=== PATIENT | male | born 1940 | race Caucasian/White ===

== ENCOUNTER 2024-01-03 18:29 | Inpatient (IN) | payer OTHER ==
[~2024-01-03] VITALS: Ht 175.3 cm; Wt 97.2 kg
[2024-01-03 19:03] VITALS: BP 189/73
[2024-01-03 19:58] LABS: BASO % 0.4 % (0.0-1.0); EOS # 0.3 10*3/uL (0.0-0.4); EOS % 4.4 % (1.0-4.0); HEMATOCRIT 28.3 % (42.0-52.0); LYMPH # 0.5 10*3/uL (1.3-4.4); LYMPH % 5.9 % (27.0-41.0); MEAN CORPUSCULAR HGB 30.5 pg (27.0-31.0); MEAN CORPUSCULAR HGB CONC 33.6 g/dl (33.0-37.0); MEAN PLATELET VOLUME 8.4 fl (9.6-12.3); MONO # 0.6 10*3/uL (0.1-1.0); MONO % 7.6 % (3.0-9.0); NEUT # 6.2 10*3/uL (2.3-7.9); NEUT % 81.4 % (47.0-73.0); PLATELET COUNT AUTOMATED 164 10*3/uL (130-400); RED BLOOD COUNT 3.11 10*6/uL (4.50-5.90); RED CELL DISTRI WIDTH 13.8 % (0-14.5); WHITE BLOOD COUNT 7.7 10*3/uL (4.8-10.8)
[2024-01-03 20:09] LABS: BILIRUBIN Negative (Negative); BLOOD 3+ (Negative); CLARITY Clear (Clear); COLOR Orange (Yellow); GLUCOSE Negative (Negative); KETONE Negative (Negative); LEUKO ESTERASE Negative (Negative); NITRITE Negative (Negative); PH 6.5 (4.5-8.0); SPECIFIC GRAVITY 1.015 (1.001-1.030); UROBILINOGEN 0.2 E.U./dl (0.0-1.0)
[2024-01-03 20:15] LABS: POTASSIUM 3.9 mmol/L (3.4-5.1); TOTAL PROTEIN 6.9 gm/dL (6.0-8.0)
[2024-01-03 20:23] LABS: BACTERIA TRACE; RBC TNTC rbc/hpf (0-2)
[2024-01-03] MEDS ORDERED: SODIUM CHLORIDE 0.9% 1,000 ML IV ONE (21:10)
[2024-01-03] MEDS ORDERED: HYDRALAZINE HC100 MG PO (22:38)
[2024-01-03] MEDS ORDERED: HYDROCHLOROTHIA25 M1 PO (22:39)
[2024-01-03] MEDS ORDERED: PROPRANOLOL HCL10 MG PO (22:39)
[2024-01-03] MEDS ORDERED: FENOFIBRATE48 M1 PO (22:40)
[2024-01-03] MEDS ORDERED: ALLOPURINOL100 MG PO (22:40)
[2024-01-03] MEDS ORDERED: LOSARTAN POTASS50 M1 PO (22:42)
[2024-01-03] MEDS ORDERED: LATANOPROST2.5 ML OU (22:43)
[2024-01-04] VITALS (14 sets, daily range): BP systolic 129–1179; BP diastolic 67–85
[2024-01-04] MEDS ORDERED: MAGNESIUM SULFATE 100 ML IV ONE (00:40)
[2024-01-04] MEDS ORDERED: Magnesium Hydroxide 30 ML UDC PO PRN (01:45)
[2024-01-04] MEDS ORDERED: BISACODYL 5 MG TAB PO PRN (01:45)
[2024-01-04] MEDS ORDERED: ACETAMINOPHEN 325 MG TAB PO PRN (01:45)
[2024-01-04] MEDS ORDERED: ACETAMINOPHEN 650 MG SUPP R PRN (01:45)
[2024-01-04] MEDS ORDERED: MORPHINE Sulfate 2 MG/ML SYR IV PRN (01:45)
[2024-01-04] MEDS ORDERED: SODIUM CHLORIDE 0.9% 1,000 ML IV ONE ×2 (02:00→16:05)
[2024-01-04] MEDS ORDERED: Acetaminophen/Hydrocodone 5 MG/325 MG TABLET PO PRN (02:05)
[2024-01-04] MEDS ORDERED: Labetalol Hydrochloride 20 MG/4 ML SYR IV ONE ×2 (02:10→18:00)
[2024-01-04 05:29] LABS: FREE T4 1.04 ng/dl (0.89-1.76); POTASSIUM 3.9 mmol/L (3.4-5.1)
[2024-01-04 06:08] LABS: BASO % 0.5 % (0.0-1.0); EOS # 0.3 10*3/uL (0.0-0.4); EOS % 4.7 % (1.0-4.0); HEMATOCRIT 27.5 % (42.0-52.0); LYMPH # 0.5 10*3/uL (1.3-4.4); LYMPH % 8.3 % (27.0-41.0); MEAN CELL VOLUME 91.4 fl (80.0-94.0); MEAN CORPUSCULAR HGB 30.9 pg (27.0-31.0); MEAN CORPUSCULAR HGB CONC 33.8 g/dl (33.0-37.0); MEAN PLATELET VOLUME 9.1 fl (9.6-12.3); MONO # 0.5 10*3/uL (0.1-1.0); MONO % 9.2 % (3.0-9.0); NEUT # 4.5 10*3/uL (2.3-7.9); PLATELET COUNT AUTOMATED 163 10*3/uL (130-400); RED BLOOD COUNT 3.01 10*6/uL (4.50-5.90); RED CELL DISTRI WIDTH 13.8 % (0-14.5); WHITE BLOOD COUNT 5.8 10*3/uL (4.8-10.8)
[2024-01-04 06:27] LABS: ACT PARTIAL THROMBO TIME 36.6 SECONDS (20.0-32.1)
[2024-01-04] MEDS ORDERED: AZITHROMYCIN 250 ML IV SCH ×2 (06:45→08:00)
[2024-01-04] MEDS ORDERED: Ceftriaxone Sodium 10 ML IV SCH (08:00)
[2024-01-04] MEDS ORDERED: HEPARIN SODIUM 5,000 UNIT/ML VIAL SC SCH (10:00)
[2024-01-04] MEDS ORDERED: GUAIFENESIN 600 MG TAB ER PO SCH (10:00)
[2024-01-04] MEDS ORDERED: hydrALAZINE hydrochloride 20 MG/ML VIAL IV ONE (13:45)
[2024-01-04 14:27] LABS: BILIRUBIN Negative (Negative); BLOOD 3+ (Negative); CLARITY Clear (Clear); COLOR Red (Yellow); GLUCOSE Trace (Negative); KETONE Negative (Negative); LEUKO ESTERASE Negative (Negative); NITRITE Negative (Negative); UROBILINOGEN 0.2 E.U./dl (0.0-1.0)
[2024-01-04 14:40] LABS: BACTERIA TRACE; RBC TNTC rbc/hpf (0-2)
[2024-01-04 15:08] LABS: URINE CREATININE RANDOM 38.4 mg/dL
[2024-01-04] MEDS ORDERED: Ondansetron Hydrochloride 4 MG TAB PO PRN (16:40)
[2024-01-04] MEDS ORDERED: hydrALAZINE hydrochloride 50 MG TAB PO SCH (22:00)
[2024-01-04] MEDS ORDERED: Propranolol Hydrochloride 10 MG TAB PO SCH (22:00)
[2024-01-05] MEDS ORDERED: SODIUM CHLORIDE 0.9% 1,000 ML IV ONE (03:34)
[2024-01-05 04:50] VITALS: BP 207/98
[2024-01-05] MEDS ORDERED: Labetalol Hydrochloride 20 MG/4 ML SYR IV ONE ×2 (05:00→05:12)
[2024-01-05 05:23] LABS: POTASSIUM 4.3 mmol/L (3.4-5.1); TOTAL PROTEIN 6.7 gm/dL (6.0-8.0)
[2024-01-05 05:57] VITALS: BP 168/68
[2024-01-05 06:28] LABS: BASO % 0.4 % (0.0-1.0); EOS # 0.2 10*3/uL (0.0-0.4); EOS % 3.9 % (1.0-4.0); HEMATOCRIT 27.9 % (42.0-52.0); LYMPH # 0.4 10*3/uL (1.3-4.4); LYMPH % 7.4 % (27.0-41.0); MEAN CELL VOLUME 94.3 fl (80.0-94.0); MEAN CORPUSCULAR HGB 31.1 pg (27.0-31.0); MONO # 0.5 10*3/uL (0.1-1.0); MONO % 8.9 % (3.0-9.0); NEUT # 4.5 10*3/uL (2.3-7.9); NEUT % 78.7 % (47.0-73.0); PLATELET COUNT AUTOMATED 173 10*3/uL (130-400); RED BLOOD COUNT 2.96 10*6/uL (4.50-5.90); RED CELL DISTRI WIDTH 13.9 % (0-14.5); WHITE BLOOD COUNT 5.7 10*3/uL (4.8-10.8)
[2024-01-05 06:57] VITALS: BP 156/71
[2024-01-05] MEDS ORDERED: LORAZEPAM0.5 M1 PO (09:44)
[2024-01-05] MEDS ORDERED: CALCIUM (OSCAL) 500MG PO SCH (10:00)
[2024-01-05] MEDS ORDERED: ALLOPURINOL 100 MG TAB PO SCH (10:00)
[2024-01-05] MEDS ORDERED: LORazepam 0.5 MG TAB PO SCH ×2 (10:13→22:00)
[2024-01-05 12:17] VITALS: BP 185/91
[2024-01-05] MEDS ORDERED: CARVEDILOL 12.5 MG TAB PO SCH (14:15)
[2024-01-05] MEDS ORDERED: amLODIPine besylate 5 MG TAB PO SCH (14:15)
[2024-01-05 19:37] VITALS: BP 170/95
[2024-01-05 21:55] VITALS: BP 188/77
[2024-01-05] MEDS ORDERED: LATANOPROST 0.005% 2.5 ML BOTTLE OPH SCH (22:00)
[2024-01-06] VITALS: BP 152/82
[2024-01-06] MEDS ORDERED: Albuterol Sulf/Ipratropium 3 ML VIAL NEB PRN (05:40)
[2024-01-06 06:17] LABS: BASO % 0.7 % (0.0-1.0); EOS # 0.2 10*3/uL (0.0-0.4); EOS % 3.2 % (1.0-4.0); HEMATOCRIT 25.8 % (42.0-52.0); LYMPH # 0.6 10*3/uL (1.3-4.4); LYMPH % 10.1 % (27.0-41.0); MEAN CELL VOLUME 93.1 fl (80.0-94.0); MEAN CORPUSCULAR HGB CONC 33.3 g/dl (33.0-37.0); MONO # 0.5 10*3/uL (0.1-1.0); MONO % 9.2 % (3.0-9.0); NEUT # 4.5 10*3/uL (2.3-7.9); NEUT % 76.1 % (47.0-73.0); PLATELET COUNT AUTOMATED 161 10*3/uL (130-400); RED BLOOD COUNT 2.77 10*6/uL (4.50-5.90); RED CELL DISTRI WIDTH 13.6 % (0-14.5); WHITE BLOOD COUNT 5.9 10*3/uL (4.8-10.8)
[2024-01-06 07:06] LABS: POTASSIUM 4.7 mmol/L (3.4-5.1)
[2024-01-06 08:00] VITALS: BP 153/94
[2024-01-06] MEDS ORDERED: hydrOXYzine pamoate 25 MG CAP PO PRN ×2 (08:55)
[2024-01-06 12:00] VITALS: BP 135/60
[2024-01-06 16:00] VITALS: BP 131/61
[2024-01-06 20:00] VITALS: BP 147/82; BP 174/82
[2024-01-06 21:58] VITALS: BP 146/77
[2024-01-07] VITALS: BP 141/54
[2024-01-07 06:17] LABS: BASO % 0.5 % (0.0-1.0); EOS # 0.3 10*3/uL (0.0-0.4); EOS % 5.4 % (1.0-4.0); LYMPH # 0.7 10*3/uL (1.3-4.4); MEAN CELL VOLUME 90.6 fl (80.0-94.0); MEAN CORPUSCULAR HGB 31.2 pg (27.0-31.0); MEAN CORPUSCULAR HGB CONC 34.4 g/dl (33.0-37.0); MEAN PLATELET VOLUME 8.8 fl (9.6-12.3); MONO # 0.6 10*3/uL (0.1-1.0); MONO % 10.3 % (3.0-9.0); NEUT # 4.3 10*3/uL (2.3-7.9); NEUT % 71.8 % (47.0-73.0); PLATELET COUNT AUTOMATED 144 10*3/uL (130-400); RED BLOOD COUNT 2.76 10*6/uL (4.50-5.90); RED CELL DISTRI WIDTH 13.7 % (0-14.5); WHITE BLOOD COUNT 5.9 10*3/uL (4.8-10.8)
[2024-01-07 06:27] LABS: POTASSIUM 4.4 mmol/L (3.4-5.1)
[2024-01-07 08:00] VITALS: BP 169/81
[2024-01-07 12:00] VITALS: BP 105/74
[2024-01-07 16:00] VITALS: BP 139/66
[2024-01-07 20:00] VITALS: BP 132/73
[2024-01-08] VITALS: BP 118/50
[2024-01-08 05:07] LABS: HBSAG Negative (Negative); HEP B CORE AB, IGM Negative (Negative); HEPATITIS C ANTIBODY Non Reactive (Non Reactive)
[2024-01-08 06:12] LABS: POTASSIUM 4.1 mmol/L (3.4-5.1)
[2024-01-08 06:14] LABS: BASO % 0.3 % (0.0-1.0); EOS # 0.3 10*3/uL (0.0-0.4); EOS % 5.4 % (1.0-4.0); HEMATOCRIT 23.8 % (42.0-52.0); LYMPH # 0.7 10*3/uL (1.3-4.4); LYMPH % 11.8 % (27.0-41.0); MEAN CELL VOLUME 92.2 fl (80.0-94.0); MEAN CORPUSCULAR HGB CONC 33.6 g/dl (33.0-37.0); MONO # 0.8 10*3/uL (0.1-1.0); MONO % 12.8 % (3.0-9.0); NEUT # 4.1 10*3/uL (2.3-7.9); PLATELET COUNT AUTOMATED 143 10*3/uL (130-400); RED BLOOD COUNT 2.58 10*6/uL (4.50-5.90); RED CELL DISTRI WIDTH 13.5 % (0-14.5); WHITE BLOOD COUNT 5.9 10*3/uL (4.8-10.8)
[2024-01-08 08:00] VITALS: BP 160/73
[2024-01-08 11:43] LABS: ACT PARTIAL THROMBO TIME 34.1 SECONDS (20.0-32.1)
[2024-01-08 12:19] VITALS: BP 106/52
[2024-01-08] MEDS ORDERED: Lidocaine Hydrochloride 5 ML AMP ONE (13:56)
[2024-01-08] MEDS ORDERED: SODIUM BICARBONATE 4.2% 5 ML VIAL ONE (13:56)
[2024-01-08 14:09] LABS: ALBUMIN 2.8 g/dL (2.9-4.4); ALPHA-1-GLOBULIN 0.4 g/dL (0.0-0.4); ALPHA-2-GLOBULIN 0.9 g/dL (0.4-1.0); BETA GLOBULIN 0.7 g/dL (0.7-1.3); FREE KAPPA LIGHT CHAINS 102.6 mg/L (3.3-19.4); FREE LAMBDA LIGHT CHAINS 64.7 mg/L (5.7-26.3); GAMMA GLOBULIN 0.9 g/dL (0.4-1.8); GLOBULIN, TOTAL 2.9 g/dL (2.2-3.9); KAPPA/LAMBDA RATIO 1.59 (0.26-1.65); TOTAL PROTEIN, SERUM 5.7 g/dL (6.0-8.5)
[2024-01-08 14:09] LABS: ALBUMIN, URINE RANDOM 55.1 % (.); ALPHA-1-GLOBULIN, URINE 7.1 % (.); ALPHA-2-GLOBULIN, URINE 8.1 % (.); GAMMA GLOBULIN, URINE 11.8 % (.); M-SPIKE % Comment: % (Not Observed); PROTEIN,TOTAL - URINE RANDOM 336.6 mg/dL (Not Estab.)
[2024-01-08 16:00] VITALS: BP 127/68
[2024-01-08 20:00] VITALS: BP 148/65
[2024-01-09] VITALS: BP 119/51
[2024-01-09 08:00] VITALS: BP 151/61
[2024-01-09 08:02] LABS: BASO % 0.5 % (0.0-1.0); EOS # 0.3 10*3/uL (0.0-0.4); EOS % 4.5 % (1.0-4.0); HEMATOCRIT 24.9 % (42.0-52.0); LYMPH # 0.6 10*3/uL (1.3-4.4); MEAN CELL VOLUME 92.9 fl (80.0-94.0); MEAN CORPUSCULAR HGB 31.3 pg (27.0-31.0); MEAN CORPUSCULAR HGB CONC 33.7 g/dl (33.0-37.0); MEAN PLATELET VOLUME 8.5 fl (9.6-12.3); MONO # 0.7 10*3/uL (0.1-1.0); MONO % 10.7 % (3.0-9.0); NEUT # 4.7 10*3/uL (2.3-7.9); NEUT % 73.7 % (47.0-73.0); PLATELET COUNT AUTOMATED 164 10*3/uL (130-400); RED BLOOD COUNT 2.68 10*6/uL (4.50-5.90); RED CELL DISTRI WIDTH 13.8 % (0-14.5); WHITE BLOOD COUNT 6.4 10*3/uL (4.8-10.8)
[2024-01-09 08:26] LABS: POTASSIUM 4.6 mmol/L (3.4-5.1)
[2024-01-09 12:00] VITALS: BP 110/55
[2024-01-09 16:00] VITALS: BP 134/61
[2024-01-09 20:00] VITALS: BP 151/69
[2024-01-10] VITALS: BP 101/50
[2024-01-10 06:25] LABS: BASO % 0.5 % (0.0-1.0); EOS # 0.3 10*3/uL (0.0-0.4); EOS % 4.9 % (1.0-4.0); HEMATOCRIT 22.6 % (42.0-52.0); LYMPH # 0.5 10*3/uL (1.3-4.4); LYMPH % 9.3 % (27.0-41.0); MEAN CELL VOLUME 91.5 fl (80.0-94.0); MEAN CORPUSCULAR HGB 31.6 pg (27.0-31.0); MEAN CORPUSCULAR HGB CONC 34.5 g/dl (33.0-37.0); MEAN PLATELET VOLUME 9.1 fl (9.6-12.3); MONO # 0.6 10*3/uL (0.1-1.0); MONO % 10.4 % (3.0-9.0); NEUT # 4.2 10*3/uL (2.3-7.9); PLATELET COUNT AUTOMATED 149 10*3/uL (130-400); RED BLOOD COUNT 2.47 10*6/uL (4.50-5.90); RED CELL DISTRI WIDTH 13.8 % (0-14.5); WHITE BLOOD COUNT 5.7 10*3/uL (4.8-10.8)
[2024-01-10 06:56] LABS: POTASSIUM 4.4 mmol/L (3.4-5.1)
[2024-01-10 08:00] VITALS: BP 140/64
[2024-01-10 12:00] VITALS: BP 127/57
[2024-01-10 16:00] VITALS: BP 128/62
[2024-01-10 20:00] VITALS: BP 141/68
[2024-01-11] VITALS: BP 103/50
[2024-01-11 06:30] LABS: BASO % 0.7 % (0.0-1.0); EOS # 0.3 10*3/uL (0.0-0.4); HEMATOCRIT 23.1 % (42.0-52.0); LYMPH # 0.6 10*3/uL (1.3-4.4); LYMPH % 10.7 % (27.0-41.0); MEAN CELL VOLUME 94.3 fl (80.0-94.0); MEAN CORPUSCULAR HGB CONC 32.9 g/dl (33.0-37.0); MONO # 0.7 10*3/uL (0.1-1.0); MONO % 11.2 % (3.0-9.0); NEUT # 4.2 10*3/uL (2.3-7.9); NEUT % 71.4 % (47.0-73.0); PLATELET COUNT AUTOMATED 168 10*3/uL (130-400); RED BLOOD COUNT 2.45 10*6/uL (4.50-5.90); RED CELL DISTRI WIDTH 13.6 % (0-14.5); WHITE BLOOD COUNT 5.8 10*3/uL (4.8-10.8)
[2024-01-11 06:51] LABS: POTASSIUM 4.4 mmol/L (3.4-5.1)
[2024-01-11 08:00] VITALS: BP 134/60
[2024-01-11 12:00] VITALS: BP 127/53
[2024-01-11] MEDS ORDERED: AMLODIPINE BESYL5 MG PO (12:46)
[2024-01-11] MEDS ORDERED: CARVEDILOL12.5 MG PO (12:46)
== END 2024-01-11 13:39 | disposition home or self-care (01) | DRG 682 ==
LOC: ED 18:29 → EDHOLD 01-04 00:44 → 4E 01-04 00:44
PROVIDERS: Family Medicine; Internal Medicine; Internal Medicine Nephrology; Student in an Organized Health Care Education/Training Program; ADMIT Internal Medicine; ATTEND Internal Medicine
PROC: 0TB03ZX Excision of Right Kidney, Percutaneous Approach, Diagnostic (ICD-10-PCS; principal; 2024-01-08)
DX: N17.0 Acute kidney failure with tubular necrosis (principal); J18.9 Pneumonia, unspecified organism; I16.1 Hypertensive emergency; E87.1 Hypo-osmolality and hyponatremia; I48.91 Unspecified atrial fibrillation; E83.42 Hypomagnesemia; N18.9 Chronic kidney disease, unspecified; Z88.2 Allergy status to sulfonamides; J06.9 Acute upper respiratory infection, unspecified; E78.5 Hyperlipidemia, unspecified; I25.10 Atherosclerotic heart disease of native coronary artery without angina pectoris; F41.1 Generalized anxiety disorder; K62.9 Disease of anus and rectum, unspecified; R91.1 Solitary pulmonary nodule; D64.9 Anemia, unspecified; E87.8 Other disorders of electrolyte and fluid balance, not elsewhere classified; R73.9 Hyperglycemia, unspecified; I12.9 Hypertensive chronic kidney disease with stage 1 through stage 4 chronic kidney disease, or unspecified chronic kidney disease; R31.29 Other microscopic hematuria; N20.0 Calculus of kidney; R31.9 Hematuria, unspecified; K80.20 Calculus of gallbladder without cholecystitis without obstruction; M1A.9XX0 Chronic gout, unspecified, without tophus (tophi)

== ENCOUNTER → 2024-03-24 | Outpatient (CLI) | payer OTHER ==
[~2024-03-24] MED LIST: ALLOPURINOL100 MG PO; AMLODIPINE BESYL5 MG PO; CARVEDILOL12.5 MG PO; FENOFIBRATE48 M1 PO; HYDRALAZINE HC100 MG PO; HYDROCHLOROTHIA25 M1 PO; LATANOPROST2.5 ML OU; LORAZEPAM0.5 M1 PO; LOSARTAN POTASS50 M1 PO; PROPRANOLOL HCL10 MG PO
== END | disposition home or self-care (01) ==
LOC: RAD 09:36
PROVIDERS: ATTEND Internal Medicine Nephrology
DX: R06.00 Dyspnea, unspecified (principal)

== ENCOUNTER → 2024-04-06 | Outpatient (CLI) | payer OTHER ==
[~2024-04-06] MED LIST changes: +CALCIUM CARBON500 M3 PO; +DAPSONE25 M1 PO; +ELIQUIS2.5 M1 PO; +PEPCID20 MG PO; +PREDNISONE20 M1 PO; +RENAL CAPS SOFTG1 MG PO; +Regadenoson 0.4 MG/5 ML SYR IV ONE; +TORSEMIDE100 MG PO; +VITAMIN D31 ML MC
== END | disposition home or self-care (01) ==
LOC: CARD 04-05 10:00
PROVIDERS: ATTEND Internal Medicine Cardiovascular Disease
DX: I48.91 Unspecified atrial fibrillation (principal); R07.9 Chest pain, unspecified

== ENCOUNTER → 2024-04-20 | Outpatient (CLI) | payer OTHER ==
[~2024-04-20] MED LIST changes: +AMIODARONE HYD200 MG PO; +ASPIRIN ADULT L81 M2 PO; +ATORVASTATIN CA40 M1 PO; +PREDNISONE10 MG PO; -Regadenoson 0.4 MG/5 ML SYR IV ONE
== END | disposition home or self-care (01) ==
LOC: US 13:56
PROVIDERS: ATTEND Internal Medicine Nephrology
DX: N28.1 Cyst of kidney, acquired (principal); N17.9 Acute kidney failure, unspecified

== ENCOUNTER 2024-05-02 16:08 | Emergency (ER) | payer OTHER ==
[~2024-05-02] VITALS: Ht 175.2 cm; Wt 83.0 kg
[2024-05-02 17:32] LABS: POTASSIUM 4.5 mmol/L (3.4-5.1)
[2024-05-02 18:53] LABS: HEMATOCRIT 31.6 % (42.0-52.0); MEAN CELL VOLUME 114.1 fl (80.0-94.0); MEAN CORPUSCULAR HGB 36.8 pg (27.0-31.0); MEAN CORPUSCULAR HGB CONC 32.3 g/dl (33.0-37.0); MEAN PLATELET VOLUME 9.4 fl (9.6-12.3); NUCLEATED RED BLOOD CELL 0.1 10*3/uL (0.0-0.0); NUCLEATED RED BLOOD CELL 1.3 % (0.0-0.0); PLATELET COUNT AUTOMATED 146 10*3/uL (130-400); RED BLOOD COUNT 2.77 10*6/uL (4.50-5.90); RED CELL DISTRI WIDTH 14.5 % (0-14.5); WHITE BLOOD COUNT 5.3 10*3/uL (4.8-10.8)
[2024-05-02 18:57] LABS: MANUAL DIFF REFLEX YES
[2024-05-02 19:38] LABS: TOTAL CELLS COUNTED 100 #CELLS
[2024-05-02 19:39] LABS: PLATELET SUFFICIENCY NORMAL (NORMAL); POLYCHROMASIA SLIGHT
== END 2024-05-02 19:45 | disposition home or self-care (01) ==
LOC: ED 16:08
PROVIDERS: Internal Medicine
DX: N32.89 Other specified disorders of bladder (principal); I25.10 Atherosclerotic heart disease of native coronary artery without angina pectoris; I10 Essential (primary) hypertension; M10.9 Gout, unspecified; F41.9 Anxiety disorder, unspecified; Z88.2 Allergy status to sulfonamides; Z88.8 Allergy status to other drugs, medicaments and biological substances; Z98.890 Other specified postprocedural states